=== PATIENT | female | born 1940 | race Caucasian/White ===

== ENCOUNTER → 2018-04-20 | Outpatient (CLI) | payer OTHER ==
[~2018-04-20] MED LIST: ACET-66 PO; ASPI-555 PO; CLEARLAX PO; ESTR0.5T PO; MECL-111 PO; PRAV20TA4 PO
== END | disposition home or self-care (01) ==
LOC: OIH 13:23
PROVIDERS: ATTEND Family Medicine
DX: Z13.6 Encounter for screening for cardiovascular disorders (principal)
CPT/HCPCS: 75571

== ENCOUNTER → 2020-06-26 | Outpatient (CLI) | payer MEDICARE ==
[~2020-06-26] VITALS: Ht 160 cm; Wt 78.0 kg
[~2020-06-26] MED LIST changes: -ASPI-555 PO; +ASPI-556 PO; -MECL-111 PO; +MECL-160 PO; +REGADENOSON 0.4 MG/5 ML PF SYG IVP SCH
== END | disposition home or self-care (01) ==
LOC: SHCH 08:41
PROVIDERS: ATTEND Internal Medicine Cardiovascular Disease
DX: I25.10 Atherosclerotic heart disease of native coronary artery without angina pectoris (principal)
CPT/HCPCS: 78452; 93017; 96374; A9500 ×2; J2785